=== PATIENT | male | born 1970 | race Two or more races ===

== ENCOUNTER 2018-01-25 21:06 | Emergency (ER) | payer MEDICAID ==
[~2018-01-25] VITALS: Ht 180.3 cm; Wt 102.1 kg
[2018-01-25] MEDS ORDERED: ONDANSETRON HCL 4 MG/2 ML VIAL IV ONE (21:45)
[2018-01-25] MEDS ORDERED: SODIUM CHLORIDE 0.9% 1,000 ML IV ONE (22:00)
[2018-01-25] MEDS ORDERED: GLUCAGON HYDROCHLORIDE (RDNA) 1 MG VIAL IV ONE (22:00)
[2018-01-25] MEDS ORDERED: LEVETIRACETAM INJ 1,000 MG in D5W 5% 100 ML IV PRN (23:30)
[2018-01-26] MEDS ORDERED: fentaNYL CITRATE 100 MCG/2 ML VL IV ONE ×3 (00:06→00:30)
[2018-01-26] MEDS ORDERED: MIDAZOLAM HCL 5 MG/ML-1ML VIAL IV ONE ×3 (00:10→00:47)
[2018-01-26] MEDS ORDERED: diphenhdrAMINE HCL 50 MG/1 ML VL IV ONE (00:14)
[2018-01-26] MEDS ORDERED: MIDAZOLAM HCL 5 MG/ML-1ML VIAL ONE (00:38)
[2018-01-26] MEDS ORDERED: LEVETIRACETAM 500 MG/5ML INJ IV ONE (02:29)
[2018-01-26] MEDS ORDERED: diphenhdrAMINE HCL 50 MG/1 ML VL ONE (02:32)
[2018-01-26] MEDS ORDERED: PHENobarbital SODIUM 65 MG/ML VL IV ONE (03:00)
[2018-01-26 05:31] VITALS: BP 119/50
[2018-01-28] MEDS ORDERED: fentaNYL CITRATE 100 MCG/2 ML VL ONE (11:17)
[2018-01-28] MEDS ORDERED: MIDAZOLAM HCL 5 MG/ML-1ML VIAL ONE (11:17)
[2018-01-28] MEDS ORDERED: diphenhdrAMINE HCL 50 MG/1 ML VL ONE (11:17)
== END 2018-01-26 07:17 | disposition home or self-care (01) ==
LOC: EDBD 21:06 → EDSEX 21:06 → ER 21:11
DX: T18.9XXA Foreign body of alimentary tract, part unspecified, initial encounter (principal); Y99.8 Other external cause status; Y93.89 Activity, other specified; Y92.89 Other specified places as the place of occurrence of the external cause
CPT/HCPCS: 43247; 70490; 96361; 96365; 96375; 99285; J1200; J1610; J1953; J2250; J2405; J2560; J3010; J7030